=== PATIENT | male | born 1950 | race Caucasian/White ===

== ENCOUNTER 2017-03-28 22:48 | Emergency (ER) | payer BC ==
[2017-03-28 22:52] VITALS: BP 161/72; PULSE 88; RESP 16; TEMP 98.1; O2SAT 98
--- NOTE | 2017-03-28 23:25 | PD ---
HPI Chief Complaint: Complaint Time Seen by Provider: 23:21 Travel History International Travel<30 days: No Contact w/Intl Traveler<30days: No Traveled to known affect area: No History of Present Illness HPI The patient is a 67 year old male who presents to the [facility] emergency department with a history of urinary retention that began 6 hours prior to arrival. The patient reports having a history of urinary retention one time previously. His PSA was noted to be elevated. He did go to a urologist after a catheter was briefly in place and had biopsies that were reportedly negative for prostate cancer. He reports that the catheter was able to be discontinued and he has not had to use one since then. He reports that today he was out of the beach and had been drinking some alcohol. He reports that this is the only new thing that he is done recently. He denies taking any new [id number] medications. The patient reports that the only medicine that he takes on a regular basis his omeprazole for acid reflux. He reports that he has a sensation of suprapubic pressure associated with this urinary retention. Otherwise on review of systems, the patient denies any recent fevers, cough, congestion, neck pain, chest pain, shortness of breath, vomiting, diarrhea, or neurologic symptoms. The patient reports that he is visiting from [place] and plans to return home in 2 days. 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 Cancer: Yes (HX OF STOMACH, ESOPHAGUS ) Diminished Hearing: Yes (R EAR ) Past Surgical History Narrative Surgical The patient's past surgical history is significant for an appendectomy, partial gastrectomy, partial esophageal resection, and partial colon resection. Appendectomy: Yes Other Surgery: Yes (PART OF STOMACH, COLON AND ESOPHAGUS REMOVED ) Social History Alcohol Use: Yes (OCCASIONALLY ) Tobacco Use: No Substance Use: No Allergies-Medications (Allergen,Severity, Reaction): Coded Allergies: No Known Allergies (Unverified , 03/28/17) Reported Meds & Prescriptions Reported Meds & Active Scripts Active Flomax (Tamsulosin HCl) 0.4 Mg Cap 0.4 Mg PO HS Reported Prilosec (Omeprazole Magnesium) 20 Mg Tab Narrative Medication Prilosec daily. Review of Systems Except as stated in HPI: all other systems reviewed are Neg General / Constitutional: No: Fever Eyes: No: Visual changes HENT: No: Headaches Cardiovascular: No: Chest Pain or Discomfort Respiratory: No: Shortness of Breath Gastrointestinal: Positive: Abdominal Pain, No: Nausea, Vomiting Genitourinary: Positive: Decreased Urinary Output, Hesitancy, No: Dysuria Musculoskeletal: No: Pain Skin: No Rash Neurologic: No: Weakness Psychiatric: No: Depression Endocrine: No: Polydipsia Hematologic/Lymphatic: No: Easy Bruising Physical Exam Narrative General: The patient is a well-developed well-nourished male, uncomfortable appearing on arrival, otherwise in no acute distress Head and Neck exam: Head is normocephalic atraumatic. Eyes: EOMI, pupils are equal round and reactive to light. Nose: Midline septum with pink mucous membranes Mouth: Dentition unremarkable. Moist mucus membranes. Posterior oropharynx is not erythematous. No tonsillar hypertrophy. Uvula midline. Airway patent. Neck: No palpable lymphadenopathy. No nuchal rigidity. No thyromegaly. Cardiovascular: Regular rate and rhythm without murmurs, gallops, or rubs. Lungs: Clear to auscultation bilaterally. No wheezes, rhonchi, or rales. Abdomen: Soft, with suprapubic abdominal tenderness on palpation with palpable bladder distention. No other tenderness on palpation of the other quadrants of the abdomen. No guarding, rebound, or rigidity. Normal bowel sounds are audible. No tenderness on palpation of McBurney's point. Negative [place] sign. Extremities: No clubbing or cyanosis. The patient does have trace pedal edema bilaterally. 2 + pulses in all 4 extremities. No calf tenderness on palpation. Back: No spinous process tenderness to palpation. No costovertebral angle tenderness to palpation. Neurologic Exam: Grossly nonfocal. Skin Exam: No rash noted. Intact skin that is warm and dry. Data Data Last Documented VS Vital Signs Date Time Temp Pulse Resp B/P Pulse Ox O2 Delivery O2 Flow Rate FiO2 03/28/17 22:52 98.1 88 16 161/72 98 Orders Complete Blood Count With Diff (03/28/17 23:21) Basic Metabolic Panel (Bmp) (03/28/17 23:21) Urinalysis - C+S If Indicated (03/28/17 23:21) Iv Access Insert/Monitor (03/28/17 23:21) Ecg Monitoring (03/28/17 23:21) Oximetry (03/28/17 23:21) Urinary Catheter Insert/Apply (03/28/17 23:21) Labs Laboratory Tests Test 03/28/17 03/28/17 23:35 23:44 Urine Color LIGHT-YELLOW Urine Turbidity CLEAR Urine pH 5.5 Urine Specific [place] 1.003 Urine Protein NEG mg/dL Urine Glucose (UA) NEG mg/dL Urine Ketones NEG mg/dL Urine Occult Blood SMALL Urine Nitrite NEG Urine Bilirubin NEG Urine Urobilinogen LESS THAN 2.0 MG/DL Urine Leukocyte Esterase NEG Urine RBC 1 /hpf Urine WBC LESS THAN 1 /hpf Microscopic Urinalysis Comment CULT NOT INDICATED White Blood Count 6.4 TH/MM3 Red Blood Count 4.46 MIL/MM3 Hemoglobin 14.2 GM/DL Hematocrit 41.0 % Mean Corpuscular Volume 91.9 FL Mean Corpuscular Hemoglobin 31.9 PG Mean Corpuscular Hemoglobin 34.7 % Concent Red Cell Distribution Width 13.7 % Platelet Count 171 TH/MM3 Mean Platelet Volume 9.4 FL Neutrophils (%) (Auto) 80.0 % Lymphocytes (%) (Auto) 12.3 % Monocytes (%) (Auto) 6.6 % Eosinophils (%) (Auto) 0.7 % Basophils (%) (Auto) 0.4 % Neutrophils # (Auto) 5.1 TH/MM3 Lymphocytes # (Auto) 0.8 TH/MM3 Monocytes # (Auto) 0.4 TH/MM3 Eosinophils # (Auto) 0.0 TH/MM3 Basophils # (Auto) 0.0 TH/MM3 CBC Comment DIFF FINAL Differential Comment Sodium Level 135 MEQ/L Potassium Level 3.6 MEQ/L Chloride Level 102 MEQ/L Carbon Dioxide Level 22.0 MEQ/L Anion Gap 11 MEQ/L Blood Urea Nitrogen 13 MG/DL Creatinine 1.00 MG/DL Estimat Glomerular Filtration 74 ML/MIN Rate Random Glucose 127 MG/DL Calcium Level 8.7 MG/DL [facility] Medical Decision Making Medical Screen Exam Complete: Yes Emergency Medical Condition: Yes Medical Record Reviewed: Yes Interpretation(s) Laboratory Tests Test 03/28/17 03/28/17 23:35 23:44 Urine Occult Blood SMALL Red Blood Count 4.46 MIL/MM3 Neutrophils (%) (Auto) 80.0 % Lymphocytes # (Auto) 0.8 TH/MM3 Sodium Level 135 MEQ/L Estimat Glomerular Filtration 74 ML/MIN Rate Random Glucose 127 MG/DL Differential Diagnosis Urinary retention, versus renal failure Narrative Course During the course of the patients emergency department visit, the patients history, examination, and differential diagnosis were reviewed with the patient. The patient had IV access obtained and blood work sent for analysis. The patient was placed on a induction heat treater with oximetry and blood pressure monitoring. The patient had a Long catheter placed to gravity on arrival and shortly after had 1200 mL of urine out during his observation. The patients laboratory studies were reviewed and remarkable for a white count of 6.4, hemoglobin 14.2, platelets 171 with neutrophils 80, BMP sodium of 135, glucose 127, urinalysis shows small occult blood, 1 RBC, otherwise unremarkable. The patient was placed with a leg bag. The patient was instructed to follow-up with his urologist as soon as he returns back home to [place] in 2 days. The patient was given a prescription for Flomax at discharge. The patient is resting comfortably and feels better, is alert and in no distress. The patients results and examination findings were discussed with the patient. The repeat examination is unremarkable and benign. The history, exam, diagnostic testing, and current condition do not suggest any significant pathology to warrant further testing, continued ED treatment, admission, or surgical evaluation at this point. The vital signs have been stable. The patient does not have uncontrollable pain, intractable vomiting, or other significant symptoms. The patient's condition is stable and appropriate for discharge. The patient will pursue further outpatient evaluation with a primary care physician or other designated or consulting physician as indicated in the discharge instructions. The patient expressed understanding and was agreeable with this plan. Diagnosis Primary Impression: Urinary retention Referrals: Urologist 3 days Patient Instructions: Long Catheter Placement and Care (ED), General Instructions, Urinary Retention in Men (ED) Med/Other Pt SpecificInfo: Prescription(s) given Scripts Tamsulosin (Flomax)0.4 Mg Cap0.4 Mg PO HS #30 CAP Ref 0 Prov:Christi Batres MD 03/29/17 Disposition: 01 DISCHARGE HOME Condition: Stable Christi Batres MD Mar 28, 2017 23:25
[2017-03-28 23:56] LABS: AUTOMATED NEUTROPHIL # 5.1 TH/MM3 (1.8-7.7); BASOPHIL % 0.4 % (0.0-2.0); EOSINOPHIL % 0.7 % (0.0-4.0); HEMO FLAGS DIFF FINAL; LYMPH % 12.3 % (9.0-44.0); LYMPHOCYTE # 0.8 TH/MM3 (1.0-4.8); MEAN CELL VOLUME 91.9 FL (80.0-100.0); MEAN CORPUSCULAR HEMOGLOBIN 31.9 PG (27.0-34.0); MEAN CORPUSCULAR HGB CONC 34.7 % (32.0-36.0); MONO % 6.6 % (0.0-8.0); PLATELET COUNT 171 TH/MM3 (150-450); RED BLOOD COUNT 4.46 MIL/MM3 (4.50-5.90); RED CELL DISTRIBUTION WIDTH 13.7 % (11.6-17.2); WHITE BLOOD COUNT 6.4 TH/MM3 (4.0-11.0)
[2017-03-29 00:12] LABS: POTASSIUM 3.6 MEQ/L (3.5-5.1)
[2017-03-29 00:13] LABS: BLOOD, URINE SMALL (NEG); COMMENT (UR) CULT NOT INDICATED; CULTURE IF INDICATED CULT NOT INDICATED; GLUCOSE,URINE NEG (NEG); KETONE, URINE NEG (NEG); NITRITE,URINE NEG (NEG); PH, URINE 5.5 (5.0-8.5); URINE COLOR LIGHT-YELLOW (YELLW/STRAW)
[2017-03-29] MEDS ORDERED: TAMS5CAP PO (00:24)
[2017-03-29] MEDS ORDERED: PRIL20TA2 (00:29)
== END 2017-03-29 01:25 | disposition home or self-care (01) ==
LOC: NEPC 22:48
DX: R33.9 Retention of urine, unspecified (principal); N40.0 Benign prostatic hyperplasia without lower urinary tract symptoms; K21.9 Gastro-esophageal reflux disease without esophagitis; Z79.899 Other long term (current) drug therapy
CPT/HCPCS: 51702; 80048; 81001; 85025